=== PATIENT | male | born 1955 | race American Indian/Alaskan Native ===

== ENCOUNTER 2016-12-13 14:14 | Emergency (ER) | payer MEDICAID ==
[2016-12-13 15:40] LABS: Basophils % (Auto) 0.5 % (0.0-1.8); Eosinophils % (Auto) 3.4 % (0.0-4.3); Hematocrit 37.9 % (35.5-45.6); Hemoglobin 12.7 gm/dl (11.8-15.2); Mean Corpuscular HGB Conc 33 % (32-34); Mean Corpuscular Hemoglobin 32 pg (28-32); Mean Corpuscular Volume 95 fl (84-94); Platelet Count 172 K/mm3 (140-440); Red Blood Count 4.01 M/mm3 (3.65-5.03); Red Cell Distribution Width 13.1 % (13.2-15.2); White Blood Count 6.2 K/mm3 (4.5-11.0)
[2016-12-13 15:54] LABS: Albumin 4.1 g/dL (3.9-5); Albumin/Globulin Ratio 1.3 %; Bilirubin,Total 0.7 mg/dL (0.1-1.2); Calcium 8.9 mg/dL (8.4-10.2); Chloride 98.1 mmol/L (98-107); Potassium 4.5 mmol/L (3.6-5.0); Total Protein 7.2 g/dL (6.3-8.2)
[2016-12-13 16:57] LABS: Bilirubin,Urine NEG (Negative); Blood,Urine NEG (Negative); Ketones,Urine NEG (Negative); Leukocyte Esterase,Urine NEG (Negative); Nitrite,Urine NEG (Negative); Protein,Urine <15 mg/dL mg/dL (Negative); RBC,Urine < 1.0 /HPF (0.0-6.0); Urobilinogen,Urine < 2.0 mg/dL (<2.0)
[2016-12-13] MEDS ORDERED: TORADOL IV ONE (20:20)
[2016-12-13] MEDS ORDERED: ZOFRAN IV ONE (20:20)
--- NOTE | 2016-12-13 20:40 | Emergency Department Report ---
ED Abdominal Pain HPI - General Chief Complaint: Abdominal Pain Stated Complaint: ABD PAIN Time Seen by Provider: 12/13/16 20:01 Source: patient Mode of arrival: Ambulatory Limitations: No Limitations - History of Present Illness Initial Comments: 61-year-old male with a past medical history of hypertension, hyperlipidemia, and kidney stones presents with abdominal pain 2 weeks. Pain is intermittent, achy in nature, rated 6/10 intensity. No specific aggravating or alleviating factors reported. Pain is below the umbilicus. Patient states she has a bedsore on and his feeling and cannot get it out. For the past 2 weeks he has been exposed to a decompensating malodorous squirrel which she thinks is causing his current symptoms. Patient had one episode of vomiting in the past 2 weeks. Some loose stools last week. Denies fever, melena, or hematochezia. - Related Data Home Medications Medication Instructions Recorded Confirmed Last Taken Lisinopril [Zestril TAB] 40 mg PO QDAY 08/23/15 04/16/16 08/23/15 Simvastatin [Zocor TAB] 10 mg PO QHS 08/23/15 04/16/16 08/22/15 HYDROcodone/APAP 10-325 [[place] 1 each PO Q6HR PRN 04/16/16 04/16/16 Unknown 10/325] Previous Rx's Medication Instructions Recorded Last Taken Type Pantoprazole [Protonix TAB] 40 mg PO QDAY #30 tablet 12/31/14 08/23/15 Rx Aspirin EC [Aspirin Enteric Coated 325 mg PO QDAY #30 tablet 04/17/16 Unknown Rx TAB] amLODIPine [Norvasc] 5 mg PO DAILY #30 tab 04/17/16 Unknown Rx Ondansetron [Zofran Odt] 4 mg PO Q8HR PRN #20 tab.rapdis 12/14/16 Unknown Rx traMADol [Ultram 50 MG tab] 50 mg PO Q6HR PRN #20 tablet 12/14/16 Unknown Rx Allergies Allergy/AdvReac Type Severity Reaction Status Date / Time No Known Allergies Allergy Verified 12/13/16 14:22 ED Review of Systems ROS: Stated complaint: ABD PAIN Other details as noted in HPI Comment: All other systems reviewed and negative Other: Constitutional: No fevers chills Eyes: No eye pain visual changes ENT: No ear pain or throat pain Neck: Denies pain Respiratory: Denies cough wheezing shortness of breath Cardiovascular: Denies chest pain, palpitations, syncope GI: As per HPI : Denies dysuria Musculoskeletal: Denies back pain, joint swelling Skin: Denies rash, lesions, erythema Neurologic: Denies headache, numbness, weakness Psychiatric: Denies suicidal ideation, hallucinations ED Past Medical Hx - Past Medical History Hx Hypertension: Yes Hx Congestive Heart Failure: No Hx Diabetes: No Hx Pulmonary Embolism: No Hx Sickle Cell Disease: No Hx Arthritis: Yes Hx Seizures: No Hx Kidney Stones: Yes Hx Asthma: No Hx COPD: No Hx Tuberculosis: No Hx Dementia: No Hx HIV: No Additional medical history: hyperlipidemia - Surgical History Hx Open Heart Surgery: No Hx Cholecystectomy: No Hx Appendectomy: No Hx Breast Surgery: No Additional Surgical History: rt toe surgery. VASECTOMY - Social History Smoking Status: Never Smoker Substance Use Type: None - Medications Home Medications: Home Medications Medication Instructions Recorded Confirmed Last Taken Type Pantoprazole [Protonix TAB] 40 mg PO QDAY #30 tablet 12/31/14 04/16/16 08/23/15 Rx Lisinopril [Zestril TAB] 40 mg PO QDAY 08/23/15 04/16/16 08/23/15 History Simvastatin [Zocor TAB] 10 mg PO QHS 08/23/15 04/16/16 08/22/15 History HYDROcodone/APAP 10-325 [[place] 1 each PO Q6HR PRN 04/16/16 04/16/16 Unknown History 10/325] Aspirin EC [Aspirin Enteric Coated 325 mg PO QDAY #30 tablet 04/17/16 Unknown Rx TAB] amLODIPine [Norvasc] 5 mg PO DAILY #30 tab 04/17/16 Unknown Rx Ondansetron [Zofran Odt] 4 mg PO Q8HR PRN #20 tab.rapdis 12/14/16 Unknown Rx traMADol [Ultram 50 MG tab] 50 mg PO Q6HR PRN #20 tablet 12/14/16 Unknown Rx ED Physical Exam - General Limitations: No Limitations - Other Other exam information: General: No limitations, patient is alert in no acute distress Head exam: Atraumatic, normocephalic Eyes exam: Normal appearance, pupils equal reactive to light, extraocular movements intact ENT: Moist mucous membrane, normal oropharynx Neck exam: Normal inspection, full range of motion, no meningismus nontender Respiratory exam: Clear to auscultation bilateral, no wheezes, rales, crackles Cardiovascular: Normal rate and rhythm, normal heart sounds Abdomen: Soft, nondistended, mild lower mid abdominal tenderness, with normal bowel sounds, no rebound, or guarding Extremity: Full range of motion normal inspection no deformity Back: Normal Inspection, full range of motion, no tenderness Neurologic: Alert, oriented x3, cranial nerves intact, no motor or sensory deficit Psychiatric: normal affect, normal mood Skin: Warm, dry, intact ED Course Vital Signs 12/13/16 12/13/16 12/14/16 14:20 20:18 00:28 Temperature 98.3 F 97.8 F 98 F Pulse Rate 71 56 L 63 Respiratory 14 20 20 Rate Blood Pressure 127/82 Blood Pressure 127/70 138/63 [Right] O2 Sat by Pulse 97 97 98 Oximetry ED Medical Decision Making - Lab Data Result diagrams: 12/13/16 15:19 12/13/16 15:19 Lab Results 12/13/16 12/13/16 12/13/16 Range/Units 14:55 15:19 15:19 WBC 6.2 (4.5-11.0) K/mm3 RBC 4.01 (3.65-5.03) M/mm3 Hgb 12.7 (11.8-15.2) gm/dl Hct 37.9 (35.5-45.6) % MCV 95 H (84-94) fl MCH 32 (28-32) pg MCHC 33 (32-34) % RDW 13.1 L (13.2-15.2) % Plt Count 172 (140-440) K/mm3 Lymph % (Auto) 24.3 (13.4-35.0) % [place] % (Auto) 10.6 H (0.0-7.3) % Eos % (Auto) 3.4 (0.0-4.3) % Baso % (Auto) 0.5 (0.0-1.8) % Lymph # 1.5 (1.2-5.4) K/mm3 [place] # 0.7 (0.0-0.8) K/mm3 Eos # 0.2 (0.0-0.4) K/mm3 Baso # 0.0 (0.0-0.1) K/mm3 Seg Neutrophils % 61.2 (40.0-70.0) % Seg Neutrophils # 3.8 (1.8-7.7) K/mm3 Sodium 136 L (137-145) mmol/L Potassium 4.5 (3.6-5.0) mmol/L Chloride 98.1 (98-107) mmol/L Carbon Dioxide 26 (22-30) mmol/L Anion Gap 16 mmol/L BUN 21 H (9-20) mg/dL Creatinine 1.5 (0.8-1.5) mg/dL Estimated GFR 58 ml/min BUN/Creatinine Ratio 14.00 % Glucose 88 (75-100) mg/dL Calcium 8.9 (8.4-10.2) mg/dL Total Bilirubin 0.7 (0.1-1.2) mg/dL AST 34 (5-40) units/L ALT 23 (7-56) units/L Alkaline Phosphatase 83 (35-129) units/L Total Protein 7.2 (6.3-8.2) g/dL Albumin 4.1 (3.9-5) g/dL Albumin/Globulin Ratio 1.3 % Lipase 40 (13-60) units/L Urine Color Yellow (Yellow) Urine Turbidity Clear (Clear) Urine pH 6.0 (5.0-7.0) Ur Specific [place] 1.011 (1.003-1.030) Urine Protein <15 mg/dl (Negative) mg/dL Urine Glucose (UA) Neg (Negative) mg/dL Urine Ketones Neg (Negative) mg/dL Urine Blood Neg (Negative) Urine Nitrite Neg (Negative) Urine Bilirubin Neg (Negative) Urine Urobilinogen < 2.0 (<2.0) mg/dL Ur Leukocyte Esterase Neg (Negative) Urine WBC (Auto) 1.0 (0.0-6.0) /HPF Urine RBC (Auto) < 1.0 (0.0-6.0) /HPF U Epithel Cells (Auto) < 1.0 (0-13.0) /HPF - Radiology Data Radiology results: report reviewed (ct abd/pelvis IV contrast: No evidence of intestinal or urinary tract obstruction. No ileus or enteritis) - Medical Decision Making Patient upset stomach seems to be related to the decomposing squirrel in his apartment. Recommend that patient have score removed or change his living environment. Medication for nausea and pain will be prescribed - Differential Diagnosis appendicitis, diverticulitis, UTI, abdominal pain nos Critical Care Time: No Critical care attestation.: If time is entered above; I have spent that time in minutes in the direct care of this critically ill patient, excluding procedure time. ED Disposition Clinical Impression: Abdominal pain Disposition: DISCHARGED TO HOME OR SELFCARE Is pt being admited?: No Does the pt Need Aspirin: No Condition: Stable Instructions: Abdominal Pain (ED) Additional Instructions: Take the medication as needed for pain or nausea. I recommend that you have the squirrel removed or you remove yourself and recurrent environment since the smell of the squirrel is triggering your symptoms. Prescriptions: Ondansetron [Zofran Odt] 4 mg PO Q8HR PRN #20 tab.rapdis PRN Reason: Nausea And Vomiting traMADol [Ultram 50 MG tab] 50 mg PO Q6HR PRN #20 tablet PRN Reason: Pain Referrals: PRIMARY CARE, [Primary Care Provider] - 3-5 Days Time of Disposition: 00:33
--- NOTE | 2016-12-13 23:41 | Cat Scan Report ---
FINAL REPORT PROCEDURE: CT ABDOMEN PELVIS W CON TECHNIQUE: Computerized axial tomography of the abdomen and pelvis was performed after the IV injection of iodinated nonionic contrast. HISTORY: abd pain, n,v COMPARISON: 12/30/2014 FINDINGS: Visualized lower thorax: No significant abnormality. Liver: Normal size and attenuation. Spleen: Normal size and attenuation. Gallbladder and biliary system: Normal. Pancreas: Normal. Adrenals: Normal. Kidneys: Both kidneys have a normal size. No hydronephrosis. No renal masses or stones.. GI tract: Stomach is normal. The small bowel has a normal caliber. No obstruction, ileus or enteritis. The cecum, appendix and colon are normal.. Lymph nodes and mesentery: Normal. Vasculature: Moderate atherosclerosis of the aorta and branching vessels.. Bladder: Normal. Reproductive organs: Normal. Peritoneum: No free fluid. Musculoskeletal structures: Moderate degenerative changes of the lower lumbar spine.. Other: None. IMPRESSION: There is no evidence of intestinal or urinary tract obstruction. No ileus or enteritis.
[2016-12-14 00:44] VITALS: BP 122/76
== END 2016-12-14 00:44 | disposition home or self-care (01) ==
LOC: ED 14:14
DX: R10.30 Lower abdominal pain, unspecified (principal); I10 Essential (primary) hypertension; M19.90 Unspecified osteoarthritis, unspecified site; Z79.82 Long term (current) use of aspirin
CPT/HCPCS: 36415; 74177; 80053; 81001; 83690; 85025; 96374; 96375; 99284; J1885; J2405; Q9967

== ENCOUNTER 2017-10-01 22:11 | Emergency (ER) | payer MEDICAID ==
--- NOTE | 2017-10-02 01:02 | Emergency Department Report ---
ED Back Pain/Injury HPI - General Chief Complaint: Back Pain/Injury Stated Complaint: PAIN ON RIGHT SIDE Time Seen by Provider: 10/01/17 23:18 Source: patient Limitations: No Limitations - History of Present Illness Initial Comments: This is a 62 y.o. A. A. male presents with right lower back pain that radiates to the right side x 1 month. He had xrays done to back several years ago and found degeneration. He went to PCP and was told he possibly may have kidney stones. States pain last for a few hours or all day when it occurs, and 8/10 on scale. The pain is worse in the morning. It has been off and on for 1 month. He is worried it may be his kidneys. Denies urgency, frequency, low abdominal pain , or dysuria. MD Complaint: back pain (right flank ) -: month(s) (1) Similar Symptoms Previously: No Place: home Radiation: none Severity: moderate Severity scale (0 -10): 8 Quality: aching Consistency: intermittent Improves With: none Worsens With: none Context: unknown Associated Symptoms: denies other symptoms. denies: confusion, weakness, chest pain, numbness, difficulty walking, cough, difficulty urinating, diaphoresis, incontinence, fever/chills, constipation, headaches, abdominal pain, loss of appetite, malaise, nausea/vomiting, rash, seizure, shortness of breath, syncope - Related Data Home Medications Medication Instructions Recorded Confirmed Last Taken Lisinopril [Zestril TAB] 40 mg PO QDAY 08/23/15 04/16/16 08/23/15 Simvastatin [Zocor TAB] 10 mg PO QHS 08/23/15 04/16/16 08/22/15 HYDROcodone/APAP 10-325 [[place] 1 each PO Q6HR PRN 04/16/16 04/16/16 Unknown 10/325] Previous Rx's Medication Instructions Recorded Last Taken Type Pantoprazole [Protonix TAB] 40 mg PO QDAY #30 tablet 12/31/14 08/23/15 Rx Aspirin EC [Aspirin Enteric Coated 325 mg PO QDAY #30 tablet 04/17/16 Unknown Rx TAB] amLODIPine [Norvasc] 5 mg PO DAILY #30 tab 04/17/16 Unknown Rx Ondansetron [Zofran Odt] 4 mg PO Q8HR PRN #20 tab.rapdis 12/14/16 Unknown Rx traMADol [Ultram 50 MG tab] 50 mg PO Q6HR PRN #20 tablet 12/14/16 Unknown Rx Allergies Allergy/AdvReac Type Severity Reaction Status Date / Time No Known Allergies Allergy Verified 12/13/16 14:22 ED Review of Systems ROS: Stated complaint: PAIN ON RIGHT SIDE Other details as noted in HPI Constitutional: no symptoms reported, see HPI. denies: chills, diaphoresis, fever, malaise, weakness Respiratory: no symptoms reported, see HPI. denies: cough, orthopnea, shortness of breath, SOB with exertion, SOB at rest, stridor, wheezing Cardiovascular: as per HPI. denies: chest pain, palpitations, dyspnea on exertion, orthopnea, edema, syncope, paroxysmal nocturnal dyspnea Gastrointestinal: as per HPI. denies: abdominal pain, nausea, vomiting, diarrhea, constipation, hematemesis, melena, hematochezia Musculoskeletal: as per HPI, back pain. denies: joint swelling, arthralgia, myalgia Neurological: as per HPI. denies: headache, weakness, numbness, paresthesias, confusion, abnormal gait, vertigo Psychiatric: as per HPI. denies: anxiety, depression, auditory hallucinations, visual hallucinations, homicidal thoughts, suicidal thoughts ED Past Medical Hx - Past Medical History hyperlipidemia Family history: no significant family history ED Back Pain Physical Exam - Exam General: Vital signs noted. No distress. Alert and acting appropriately. Back/Abdomen: Yes Flank Tenderness (right, tender to palpation), No Abdominal Tenderness, No Perithoracic Tenderness, No Perilumbar Tenderness, No Sacroiliac Tenderness, No Straight Leg Raise Pain Neuro: Yes Normal Sensation, Yes Normal DTR's, Yes Normal Gait, No Motor Weakness ED Course Vital Signs 10/01/17 22:53 Temperature 98.5 F Pulse Rate 60 Respiratory 18 Rate Blood Pressure 150/71 O2 Sat by Pulse 97 Oximetry - Reevaluation(s) Reevaluation #1: 10/02/17 01:37 62 y.o. A. A. male presents with right flank pain x 1 month. History of degenerative disease. Followed by pain management for chronic pain. Taking hydrocodone-acetaminophen 10/325 mg. UA normal. Continue taking current regimen and follow up with pain management. 10/02/17 01:39 Ed Back Pain Tests - Tests Tests: Normal UA Critical care attestation.: If time is entered above; I have spent that time in minutes in the direct care of this critically ill patient, excluding procedure time. 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 Follow up with primary care provider. Referrals: VALERIE SPRINGER MD [Primary Care Provider] - 3-5 Days [facility] [Outside] - 3-5 Days [facility] [Outside] - 3-5 Days Time of Disposition: 01:37 Print Language: TAJIK
[2017-10-02 01:04] LABS: Bilirubin,Urine NEG (Negative); Blood,Urine NEG (Negative); Ketones,Urine NEG (Negative); Leukocyte Esterase,Urine NEG (Negative); Nitrite,Urine NEG (Negative); Protein,Urine <15 mg/dL mg/dL (Negative); Urobilinogen,Urine < 2.0 mg/dL (<2.0); WBC,Urine < 1.0 /HPF (0.0-6.0)
[2017-10-02 02:15] VITALS: BP 145/70
== END 2017-10-02 02:15 | disposition home or self-care (01) ==
LOC: ED 22:11
DX: M47.16 Other spondylosis with myelopathy, lumbar region (principal); E78.5 Hyperlipidemia, unspecified
CPT/HCPCS: 81001; 99283